=== PATIENT | male | born 1990 | race Caucasian/White ===

== ENCOUNTER → 2018-10-14 | Outpatient (CLI) | payer OTHER ==
[~2018-10-14] MED LIST: HYDACE5 PO; INCARCERATION; RXHYDACE PO
== END | disposition home or self-care (01) ==
LOC: LAB EV 16:06 → LAB SHORT 16:06
DX: J02.9 Acute pharyngitis, unspecified (principal)
CPT/HCPCS: 87081

== ENCOUNTER 2019-02-04 20:29 | Emergency (ER) | payer OTHER ==
[~2019-02-04] VITALS: Ht 177.8 cm; Wt 68.0 kg
== END 2019-02-04 21:56 | disposition left against medical advice (07) ==
LOC: ER 20:29
DX: S61.431A Puncture wound without foreign body of right hand, initial encounter (principal); W26.0XXA Contact with knife, initial encounter; Z53.21 Procedure and treatment not carried out due to patient leaving prior to being seen by health care provider